=== PATIENT | male | born 1985 | race Caucasian/White ===

== ENCOUNTER 2019-06-10 17:09 | Emergency (ER) | payer MEDICAID, OTHER ==
[~2019-06-10] VITALS: Ht 185.4 cm; Wt 90.7 kg
[2019-06-10 17:24] VITALS: BP 123/87
[2019-06-10 21:56] LABS: Urine Bacteria NONE SEEN /hpf (None Seen); Urine Blood 3+ /uL (Negative); Urine Mucus FEW (None Seen); Urine Specific Gravity 1.018 (1.001-1.035); Urine WBC 48 /hpf (0 - 3)
[2019-06-10] MEDS ORDERED: MEPERIDINE HCL (25 MG/ML) 1ML VIAL IV ONE (23:00)
[2019-06-10] MEDS ORDERED: PHENAZOPYRIDINE HCL 100 MG TAB PO ONE (23:00)
[2019-06-10] MEDS ORDERED: SODIUM CHLORIDE 0.9% 1,000 ML IV ONE (23:00)
[2019-06-10] MEDS ORDERED: cefTRIAXone SOD 1,000 MG VL IV ONE (23:00)
== END 2019-06-11 00:28 | disposition home or self-care (01) ==
LOC: ER 17:14
DX: N20.0 Calculus of kidney (principal); N39.0 Urinary tract infection, site not specified; Z88.0 Allergy status to penicillin
CPT/HCPCS: 74176; 81001; 96374; 96375; 99284; J0696; J2175; J7030